=== PATIENT | male | born 2000 | race Caucasian/White ===

== ENCOUNTER 2023-09-15 19:19 | Emergency (ER) | payer OTHER ==
[~2023-09-15] VITALS: Ht 180.3 cm; Wt 145.5 kg
[2023-09-15 19:22] VITALS: TEMP 97.4
[2023-09-15 20:42] VITALS: BP 154/81; PULSE 84
== END 2023-09-15 20:43 | disposition home or self-care (01) ==
LOC: COL.ER 19:19
DX: S61.511A Laceration without foreign body of right wrist, initial encounter (principal); Z23 Encounter for immunization; W26.8XXA Contact with other sharp object(s), not elsewhere classified, initial encounter